=== PATIENT | female | born 1970 | race Caucasian/White ===

== ENCOUNTER 2020-04-02 10:13 | Outpatient (CLI) | payer BC, SELFPAY ==
--- NOTE | 2020-04-02 10:28 | MM_ITS ---
WS: [id number] BILATERAL DIGITAL DIAGNOSTIC MAMMOGRAM MAMMOGRAPHY WITH CAD CLINICAL INFORMATION: CALCIFICATIONS HISTORY: Patient did not return for six-month follow-up . Left breast stereotactic biopsy COMPARISON: , , 01/10 and 11/10/2018 TECHNIQUE: Bilateral CC, MLO, and ML views. FINDINGS: The breasts are composed of heterogeneous fibroglandular density, which can limit the detection of sm all underlying mass lesions. 2 left biopsy markers. Stable amorphous punctate calcifications upper ou ter left breast appear unchanged. A few additional punctate calcifications posterior depth left breas t inner quadrant similar in appearance. No new or suspicious calcifications. No suspicious focal mass, asymmetry, calcifications, or architectural distortion. No evidence of brooks gnancy. Right breast is unchanged in appearance. MM/[place] [id number] IMPRESSION: BI-RADS: 2-Benign FOLLOW UP: 1 Year Follow-up Recommend return to annual screening mammography.
== END 2020-04-02 10:14 | disposition home or self-care (01) ==
PROVIDERS: PCP Family Medicine; Visit Provider Family Medicine
DX: R92.1 Mammographic calcification found on diagnostic imaging of breast (principal)
CPT/HCPCS: 77066

== ENCOUNTER → 2021-05-02 11:45 | Outpatient (BNVA) | payer SELFPAY | PROVIDERS: PCP Family Medicine; Referring Provider Family Medicine; Visit Provider Podiatrist Foot & Ankle Surgery | DX: M25.572 Pain in left ankle and joints of left foot (principal) | CPT/HCPCS: 73630 ==

== ENCOUNTER 2023-01-11 11:19 | Outpatient (CLI) | payer OTHER, MEDICAID, SELFPAY ==
[2023-01-11 12:32] VITALS: BMI 28.3
--- NOTE | 2023-01-11 12:38 | ECG_ITS ---
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 Interpretive Statements NAME OF STUDY: TREADMILL STRESS TEST INDICATION: Chest Pain PROCEDURE: At the baseline, the patient's blood pressure was 121/80 with a heart rate of 65. The baseline electrocardiogram showed normal sinus rhythm with some nonspecific ST changes. The patient exercised for 6 minutes and 43 seconds on a standard [place] protocol. Patient attained a maximum heart rate of 149 beats per minute(88% of the maximum predicted heart rate) with a blood pressure at the peak exercise of 235/78 mm Hg. The EKG at the peak exercise revealed no significant EKG changes. Patient did not have any chest pain or any significant cardiac arrhythmias with the exercise. The EKG is somewhat uninterpretable due to heavy heart defects During the recovery phase, there were no new changes. Blood pressure at the end of the recovery phase was 140/74 mm Hg with a heart rate of 84 per minute. CONCLUSION: 1. Nonspecific EKG changes with the treadmill exercise 2. No exercise-induced chest pain or cardiac arrhythmia 3. Hypertensive response to exercise 3. Slightly impaired exercise tolerance, attained a maximum of 10.2 METs Electronically Signed On 01-16-2023 19:34:37 CDT by Avery Fernandez M.D. [email or web address]
--- NOTE | 2023-01-11 12:56 | MM_ITS ---
WS: [id number] BILATERAL 3D TOMOSYNTHESIS DIGITAL SCREENING MAMMOGRAPHY WITH CAD CLINICAL INFORMATION: SCREENING HISTORY: Screening mammogram. No current complaints. COMPARISON: April 02, 2020 TECHNIQUE: Bilateral CC and MLO views. FINDINGS: The breasts are composed of heterogeneous fibroglandular density tissue, which can limit the detectio n of small underlying mass lesions. No suspicious mass, asymmetry, calcifications, or architectural d istortion. No evidence of malignancy. Previous stereotactic biopsy cavity LEFT breast with biopsy cli ps. Stable clustered calcifications posterior LEFT breast. IMPRESSION: MM/[place] [id number] BI-RADS: 2-Benign FOLLOW UP: 1 Year Follow-up Recommend return to annual screening mammography.
[2023-01-11 13:12] VITALS: BP 171/71; PULSE 91
== END 2023-01-11 11:20 | disposition home or self-care (01) ==
PROVIDERS: PCP Family Medicine; Visit Provider Family Medicine
DX: Z12.31 Encounter for screening mammogram for malignant neoplasm of breast (principal); R07.9 Chest pain, unspecified
CPT/HCPCS: 77063; 77067; 93017

== ENCOUNTER 2023-01-25 11:30 | Outpatient (CLI) | payer OTHER, SELFPAY | END 2023-01-25 11:31 | disposition home or self-care (01) | LOC: SLEEP 01-26 15:40 | PROVIDERS: PCP Family Medicine; Visit Provider Family Medicine | DX: G47.10 Hypersomnia, unspecified (principal); G47.33 Obstructive sleep apnea (adult) (pediatric) | CPT/HCPCS: G0399 ==

== ENCOUNTER → 2023-01-26 13:19 | Outpatient (BNVA) | payer OTHER, MEDICAID, SELFPAY | PROVIDERS: PCP Family Medicine; Visit Provider Internal Medicine | DX: R07.9 Chest pain, unspecified (principal) | CPT/HCPCS: 93005 ==

== ENCOUNTER 2023-07-13 13:17 | Emergency (ER) | payer OTHER, MEDICAID, SELFPAY ==
[2023-07-13 13:19] VITALS: BP 149/89; PULSE 76; RESP 18; TEMP 36.8; O2SAT 99; BMI 29.2
--- NOTE | 2023-07-13 13:27 | CT_ITS ---
WS: [id number] CT HEAD NONCONTRAST HISTORY: fall TECHNIQUE: Contiguous axial imaging performed through the brain in 2.5 mm imaging. Bone and soft tiss ue windows. Sagittal and coronal reformats reviewed. All CT scans at [facility] use at least one of these dose optimization techniques: automated exposure control; mA and/or kV adjustment per pa tient size (includes targeted exams where dose is matched to clinical indication); or iterative recon struction. DLP: 1269.45 mGy.cm COMPARISON: None available. No acute intracranial hemorrhage, midline shift or mass effect. No atrophy or prior infarcts or herniation. Ventricles: Normal size with no hydrocephalus. Paranasal sinuses: As visualized are clear. Mastoid air cells: Well pneumatized. Calvarium and scalp: Skull is intact with no soft tissue edema or swelling. Artifact through the skull base due to patient's jewelry. IMPRESSION: Negative head CT.
--- NOTE | 2023-07-13 13:27 | CT_ITS ---
WS: [id number] CT CERVICAL SPINE HISTORY: fall TECHNIQUE: Contiguous 2.0 mm axial imaging performed through the entire cervical spine. Sagittal and coronal reformats also performed. All CT scans at [facility] use at least one of these dose o ptimization techniques: automated exposure control; mA and/or kV adjustment per patient size (include s targeted exams where dose is matched to clinical indication); or iterative reconstruction. DLP: 1269.45 mGy.cm COMPARISON: None available. Mild straightening of the normal cervical lordosis with slight reversal at C5-6. Moderate disc base n arrowing and desiccation at C5-6 and C6-7. Lateral masses are aligned. The odontoid is intact. Mild bilateral facet joint arthritis. No central stenosis. No disc protrusions. Lung apices are clear . No cervical chain adenopathy. IMPRESSION: No cervical spine fracture. Moderate degenerative disc disease at C5-6 and C6-7.
--- NOTE | 2023-07-13 13:27 | XR_ITS ---
WS: [id number] Exam: XR tibia fibula LT 2V [id number] Date/Time of Exam: 07/13/2023 1:30 PM Reason For Exam: fall In multiple views, no fractures, soft tissue swelling, or unusual calcifications are noted in or arou nd the tibia and fibula. There is normal bony alignment. No irregularity to the bony architecture i s noted. IMPRESSION: Negative LEFT tibia and fibula.
--- NOTE | 2023-07-13 13:31 | W.ED.HA ---
HPI - Headache General: Chief Complaint: Headache Stated Complaint: Fall Time Seen by Provider: 07/13/23 13:19 Source: patient Mode of arrival: ambulatory Limitations: no limitations History of Present Illness: 52-year-old female who states that she had tripped while she was going upstairs she did hit her head has a small laceration over her left eye she has a headache along with neck pain she also has some pain to her left lower leg with an abrasion denies any other injuries. Associated symptoms: Deny chest pain, fever(s), nausea, rash or vomiting Review of Systems Const: Denies: fever(s) or chills Eyes: Denies: eye discomfort ENMT: Denies: throat pain or dental pain Card: Denies: chest pain Resp: Denies: dyspnea GI: Denies: abdominal pain, nausea, vomiting or diarrhea : Denies: dysuria Musc: Reports: neck pain and extremity pain; Denies: back pain Skin/Breast: Denies: rash Neuro: Reports: headache(s) PFSH ED PFSH: Medical History Hypertension Family History Father Hypertension S/P triple vessel bypass Atrial fibrillation Mother Hypertension Atrial fibrillation Palpitations Cancer Sister SVT (supraventricular tachycardia) Mitral valve regurgitation Social History Smoking and tobacco/nicotine status: never used tobacco/nicotine Alcohol intake: current Alcohol intake frequency: holidays/special occasions only Physical Exam Const: COMMON NORMALS: no acute distress, patient oriented x3 and healthy appearing HENMT: COMMON NORMALS: normocephalic HEAD & SCALP: normocephalic OTHER: 1cm laceration to left upper eyebrow Eye: COMMON NORMALS: Equal, round and reactive pupils present and EOMs intact bilaterally PUPIL: Yes Equal, round and reactive pupils present Neck/C-Spine: OTHER: In c-collar Chest: COMMONS NORMALS: normal inspection of the chest and normal palpation of entire chest wall Resp: COMMON NORMALS: normal respiratory effort, No retractions, No use of accessory muscles and clear to auscultation bilaterally AUSCULTATION: clear to auscultation bilaterally Cardio: COMMON NORMALS: regular rate, regular rhythm and No murmurs present (Cardio) RATE: regular rate RHYTHM: regular rhythm GI: COMMON NORMALS: Normal to inspection, nondistended, normoactive bowel sounds present, Soft to palpation, non-tender and no masses PALPATION: Yes Soft to palpation Extremity: COMMON NORMALS: full ROM OTHER: Abrasion noted to left lower leg with some tenderness no obvious deformity Neuro: COMMON NORMALS: patient oriented x3, moves all extremities and no focal motor deficits Psych: COMMON NORMALS: mental status grossly normal, Normal thought process present and cooperative THOUGHT PROCESS: Normal thought process present Skin: COMMON NORMALS: no rashes or lesions noted and no wounds GENERAL SKIN EXAM: no rashes or lesions noted Procedures Laceration Laceration 1: Site: face Side (If applicable): left Size (cm): 1 Description: linear Depth: simple, single layer Pre-repair: wound explored and irrigated extensively Skin layer closed with: other (dermabond) Course Vital Signs: Vital signs: Vital Signs Temperature 98.2 F 07/13/23 13:19 Pulse Rate 82 07/13/23 14:02 Respiratory Rate 17 07/13/23 14:02 Blood Pressure 142/94 07/13/23 14:02 Pulse Oximetry 99 07/13/23 14:02 Oxygen Delivery Me thod Room Air 07/13/23 14:02 MDM - Headache Medical Decision Making Patient presents here with head injury along with abrasion to her lower leg CTs and x-rays are all normal she had a very small laceration to left eyebrow did repair with tissue adhesive she is stable for discharge she is to follow-up with PCP and return if worsening. Medical Records I reviewed the patient's medical records. No radiology studies performed this visit Discharge Plan Discharge Patient Disposition: Home Clinical Impression: Head injury, Abrasion of anterior left lower leg, Laceration Condition: Stable Prescriptions: No Action levothyroxine [Synthroid] 50 mcg tablet 50 mcg PO DAILY Adult One Daily Multivitamin 0.4 mg tablet PO potassium chloride 10 mEq capsule, extended release 10 meq PO DAILY citalopram 40 mg tablet 60 mg PO DAILY pregabalin [Lyrica] 150 mg capsule 150 mg PO DAILY hydrochlorothiazide 12.5 mg tablet 12.5 mg PO DAILY Discharge Orders: Discharge ED (Routine); Ordered 07/13/23 Ordered By: Leeanne Doyle Referrals: Katelyn Watson MD [Primary Care Provider] - 4-7 days Discharge Diet: Advance as tolerated Discharge Activity: Resume usual activity Patient Instructions: Head Injury (ED), Skin Adhesive Care (ED) Coding Level of Care Code ED Senior Solutions [employer] for [employer]
[2023-07-13] MEDS: ondansetron 2 mg/ML SDV 2 mL 4 MG IVP (13:56)
[2023-07-13 14:02] VITALS: BP 142/94; PULSE 82; RESP 17; O2SAT 99
[2023-07-13] MEDS: morphine 4 mg/mL SDV 1 mL IVP (14:02)
== END 2023-07-13 14:31 | disposition home or self-care (01) ==
PROVIDERS: Emergency Provider Emergency Medicine; PCP Family Medicine
DX: S01.112A Laceration without foreign body of left eyelid and periocular area, initial encounter (principal); S80.812A Abrasion, left lower leg, initial encounter; S09.90XA Unspecified injury of head, initial encounter; I10 Essential (primary) hypertension; W01.0XXA Fall on same level from slipping, tripping and stumbling without subsequent striking against object, initial encounter
CPT/HCPCS: 12011; 70450; 72125; 73590; 96374; 96375; 99285; J2270; J2405

== ENCOUNTER 2024-04-06 09:14 | Outpatient (CLI) | payer SELFPAY ==
--- NOTE | 2024-04-06 09:22 | US_ITS ---
WS: [id number] ULTRASOUND THYROID TECHNIQUE: Ultrasound of the thyroid. CLINICAL INFORMATION: HYPOTHYROIDISM COMPARISON: Ultrasound thyroid 11/17/2021 FINDINGS: Thyroid: Right and left thyroid lobes are normal in size with slightly heterogeneous echotexture. Right thyroid lobe: 3.5 cm x 1.3 cm x 1.0 cm No RIGHT thyroid nodules. Left thyroid lobe: 3.1 cm x 1.2 cm x 0.8 cm. Hypoechoic solid nodule LEFT thyroid measuring 5 x 3 x 5 mm unchanged in appearance since 2021. Isthmus: 0.3 mm. Cervical lymphadenopathy: None. US/US thyroid [id number] IMPRESSION: 1. Similar-appearing heterogeneous thyroid echotexture. 2. Stable hypoechoic solid LEFT thyroid nodule upper pole measuring 5 x 3 x 5 mm unchanged. TIRADS Category 4: Moderately suspicious (total points = 4) FNA if e1.5 cm Follow if e1 cm (at 1, 2, 3, and 5 years)
== END 2024-04-06 09:15 | disposition home or self-care (01) ==
LOC: RAD 09:15
PROVIDERS: PCP Family Medicine; Visit Provider Internal Medicine
DX: E03.9 Hypothyroidism, unspecified (principal); E04.1 Nontoxic single thyroid nodule
CPT/HCPCS: 76536

== ENCOUNTER 2025-01-10 10:34 | Outpatient (CLI) | payer BC, MEDICAID, SELFPAY ==
--- NOTE | 2025-01-10 10:37 | MM_ITS ---
WS: [id number] SCREENING DIGITAL BREAST TOMOSYNTHESIS MAMMOGRAM WITH CAD HISTORY: SCREENING COMPARISON: 01/11/2023, 04/02/2020, 11/10/2018 Bilateral CC and MLO with tomosynthesis and synthetic mammography submitted. Computer aided detection analyzed. Breast composition: The breasts are heterogeneously dense, which may obscure small masses. New well-circumscribed mass in the posterior lateral LEFT breast near 1:00 measures 7 x 6 x 6 mm. There are a few associated calcifications. The remaining breasts are very asymmetric with scattered fibroglandular densities but no new additional mass or calcification. MM/MM [facility] tomosynthesis [id number] IMPRESSION: BI-RADS: 0 - Incomplete: Need additional imaging evaluation FOLLOW UP: Need Additional Imaging Recommendation: LEFT breast ultrasound, posterior 1:00.
== END 2025-01-10 10:35 | disposition home or self-care (01) ==
PROVIDERS: PCP Family Medicine; Visit Provider Internal Medicine
DX: Z12.31 Encounter for screening mammogram for malignant neoplasm of breast (principal); R92.333 Mammographic heterogeneous density, bilateral breasts; N63.21 Unspecified lump in the left breast, upper outer quadrant; R92.1 Mammographic calcification found on diagnostic imaging of breast; N64.89 Other specified disorders of breast
CPT/HCPCS: 77063; 77067

== ENCOUNTER 2025-01-22 14:05 | Outpatient (CLI) | payer BC, MEDICAID, SELFPAY ==
--- NOTE | 2025-01-22 14:11 | US_ITS ---
WS: [id number] ULTRASOUND LEFT BREAST HISTORY: LEFT BREAST ABNORMAL MAMMOGRAM COMPARISON: Screening mammogram 01/10/2025 TECHNIQUE: 2-D and Doppler. There is a well-circumscribed simple cyst with through transmission at 1:00, 2 cm from the nipple measuring 1.3 x 1.4 x 1.2 cm. Cyst is measuring slightly larger than the mammogram. No solid mass identified. US/US breast LT limited* [id number] IMPRESSION: BI-RADS: 2- Benign FOLLOW-UP: 1 Year Follow-up New LEFT breast mass corresponds to a benign simple cyst. Return to annual scre ening mammography.
== END 2025-01-22 14:06 | disposition home or self-care (01) ==
LOC: RAD 14:06
PROVIDERS: PCP Family Medicine; Visit Provider Internal Medicine
DX: R92.8 Other abnormal and inconclusive findings on diagnostic imaging of breast (principal); N60.02 Solitary cyst of left breast
CPT/HCPCS: 76642

== ENCOUNTER 2025-09-18 09:44 | Outpatient (CLI) | payer BC, MEDICAID, SELFPAY ==
--- NOTE | 2025-09-18 09:54 | XR_ITS ---
WS: [id number] Lumbar spine, AP and lateral views, 09/18/2025 Clinical Data: LUMBAGO Comparison: None. Findings: No compression fractures or subluxation is seen. No disc space narrowing is seen. The transverse processes and SI joints are normal. There is a slight dextroscoliosis of the upper lumbar and lower thoracic spine. XR/XR lumbar spine 2-3V* [id number] Impression: Minimal dextroscoliosis of the upper lumbar spine.
== END 2025-09-18 09:45 | disposition home or self-care (01) ==
LOC: RAD 09:48
PROVIDERS: PCP Internal Medicine; Visit Provider Internal Medicine
DX: M54.50 Low back pain, unspecified (principal)
CPT/HCPCS: 72100